=== PATIENT | female | born 1965 | race Caucasian/White ===

== ENCOUNTER 2021-07-06 09:16 | Day surgery (SDC) | payer OTHER ==
[~2021-07-06 09:16] MED LIST: Lactated Ringers 1,000 ML IV SCH; Lidocaine 1%/Sod Bicarbonate in NS 8.4% 1 ML Syringe IDERM PRN; Sodium Chloride 0.9% 10 ML Syringe FLUSH PRN
[2021-07-06] MEDS ORDERED: Propofol 200 MG/20 ML SDV ONE ×2 (09:17→11:20)
[2021-07-06] MEDS ORDERED: fentaNYL 100 MCG/2 ML SDV ONE (09:17)
[2021-07-06] MEDS ORDERED: Lactated Ringers 1,000 ML ONE (09:17)
[2021-07-06] MEDS ORDERED: Midazolam 1 MG/ML 2 ML SDV ONE (09:17)
[2021-07-06] MEDS ORDERED: ceFAZolin 1 GM Vial ONE (09:20)
--- NOTE | 2021-07-06 09:48 | PCM.PREANE ---
Preanesthetic Assessment - Anesthesia/Transfusion/Family Hx Anesthesia History: Prior Anesthesia Without Reaction Family History of Anesthesia Reaction: No Transfusion History: No Prior Transfusion(s) - Review of Systems General: No Symptoms Pulmonary: No Symptoms Cardiovascular: Other (htn) Gastrointestinal: Other (denies GERd with diet change) Neurological: Other Other: Reports: Thyroid Problems (on replacement) - Physical Assessment NPO Status Date: 07/05/21 NPO Status Time: 19:00 Height: 1.7 m Weight: 85.4 kg ASA Class: 2 Mental Status: Alert & Oriented x3 Airway Class: Mallampati = 2 Dentition: Reports: Normal Dentition Thyro-Mental Finger Breadths: 3 Mouth Opening Finger Breadths: 3 ROM/Head Extension: Full Lungs: Clear to Auscultation, Normal Respiratory Effort Cardiovascular: Regular Rate, Regular Rhythm - Allergies Allergies/Adverse Reactions: Allergies Allergy/AdvReac Type Severity Reaction Status Date / Time No Known Allergies Allergy Verified 07/06/21 09:19 - Blood Blood Available: No Product(s) Available: None - Anesthesia Plan Pre-Op Medication Ordered: None - Acknowledgements Anesthesia Type Planned: Spinal Pt an Appropriate Candidate for the Planned Anesthesia: Yes Alternatives and Risks of Anesthesia Discussed w Pt/Guardian: Yes Pt/Guardian Understands and Agrees with Anesthesia Plan: Yes PreAnesthesia Questionnaire - HOME MEDS Home Medications: Home Meds Aspirin [Aspirin EC] 325 mg PO BID #84 tab 07/06/21 [Rx] Cyclobenzaprine [Flexeril] 10 mg PO BID PRN #20 tab 07/06/21 [Rx] oxyCODONE 5 - 10 mg PO Q4H PRN #40 tab 07/06/21 [Rx] - CURRENT (IN HOUSE) MEDS Current Meds: Current Medications Morphine Sulfate 8 mg/Epinephrine HCl 0.3 mg/Cefuroxime Sodium 750 mg/Ketorolac Tromethamine 30 mg/Sodium Chloride 7.9 ml 0 mg .XX ASDIRECTED PRN PRN Reason: Pain Stop: 07/06/21 18:00 Lactated Ringer's (Ringers, Lactated) 1,000 mls @ 125 mls/hr IV ASDIRECTED BRUCE Stop: 07/06/21 23:00 Lidocaine/Sodium Bicarbonate (Lidocaine 1%/Sod Bicarbonate In Ns 8.4% 1 Ml Syringe) 0.25 ml IDERM ONETIME PRN PRN Reason: Prior to IV Start Stop: 07/06/21 18:00 Sodium Chloride (Sodium Chloride 0.9% 10 Ml Syringe) 10 ml FLUSH ASDIRECTED PRN PRN Reason: Keep Vein Open Stop: 07/06/21 18:00 Discontinued Medications Bupivacaine HCl (Bupivacaine 0.25% 10 Ml Sdv) Confirm Administered Dose 10 ml .ROUTE .STK-MED ONE Stop: 07/06/21 09:22 Cefazolin Sodium (Cefazolin 1 Gm Vial) Confirm Administered Dose 2 gm .ROUTE .STK-MED ONE Stop: 07/06/21 09:21 Fentanyl (Fentanyl 100 Mcg/2 Ml Sdv) Confirm Administered Dose 100 mcg .ROUTE .STK-MED ONE Stop: 07/06/21 09:18 Lactated Ringer's (Ringers, Lactated) Confirm Administered Dose 1,000 mls @ as directed .ROUTE .STK-MED ONE Stop: 07/06/21 09:18 Midazolam HCl (Midazolam 1 Mg/Ml 2 Ml Sdv) Confirm Administered Dose 2 mg .ROUTE .STK-MED ONE Stop: 07/06/21 09:18 Propofol (Propofol 200 Mg/20 Ml Sdv) Confirm Administered Dose 600 mg .ROUTE .STK-MED ONE Stop: 07/06/21 09:18 Tranexamic Acid (Tranexamic Acid 1,000 Mg/10 Ml Amp) Confirm Administered Dose 1,000 mg .ROUTE .STK-MED ONE Stop: 07/06/21 09:22 Triamcinolone Acetonide (Triamcinolone Acetonide 40 Mg/Ml 1 Ml Sdv) Confirm Administered Dose 80 mg .ROUTE .STK-MED ONE Stop: 07/06/21 09:21 Vancomycin HCl (Vancomycin 1 Gm Sdv) Confirm Administered Dose 1 gm .ROUTE .STK- MED ONE Stop: 07/06/21 09:22
[2021-07-06] MEDS ORDERED: Ropivacaine 0.5% 5 MG/ML 30 ML SDV ONE ×2 (10:04→11:42)
[2021-07-06] MEDS ORDERED: EPINEPHrine 1 MG/ML SDV ONE ×2 (10:04→11:42)
[2021-07-06] MEDS ORDERED: Ondansetron 4 MG/2 ML SDV ONE (10:23)
[2021-07-06] MEDS ORDERED: Ketorolac 30 MG/ML SDV ONE (10:34)
[2021-07-06] MEDS: Vancomycin 1 GM SDV ONE ×2 (11:15→11:38)
[2021-07-06] MEDS: Triamcinolone Acetonide 40 MG/ML 1 ML SDV ONE ×2 (11:17→11:55)
[2021-07-06] MEDS: Bupivacaine 0.25% 10 ML SDV ONE ×2 (11:17→11:55)
[2021-07-06] MEDS: Morphine 8 MG, EPINEPHrine 0.3 MG, Cefuroxime 750 MG, Ketorolac 30 MG, Sodium Chloride ... PRN ×10 (11:30→13:36)
--- NOTE | 2021-07-06 12:15 | PCM.POSTAN ---
POST ANESTHESIA ASSESSMENT - MENTAL STATUS Mental Status: Alert, Oriented - RESPIRATORY Respiratory Status: Respiratory Rate WNL, Airway Patent, O2 Saturation Stable - CARDIOVASCULAR CV Status: Pulse Rate WNL, Blood Pressure Stable - GASTROINTESTINAL GI Status: No Symptoms - PAIN Pain Score: 5 - POST OP HYDRATION Hydration Status: Adequate & Stable - OBSERVATIONS Free Text/Narrative:: no anesthesia complications noted
[2021-07-06] MEDS: fentaNYL 100 MCG/2 ML SDV IVPUSH PRN ×2 (12:17→12:36)
--- NOTE | 2021-07-06 12:41 | PCM.SN.2 ---
- Free Text/Narrative Note: Right selective femoral nerve block at the adductor canal for post-procedure pain control under US guidance requested by Dr. Kathleen. Time Out: 1213 Start: 1219 End: 1228 Chart reviewed. Consent signed. Questions answered. Appropriate monitors applied. Time out performed. Right mid-shaft femur identified with ultrasound, scanning medially of femur, the femoral artery in the adductor canal visualized, and the femoral nerve located laterally to the artery. The skin was prepped lateral to the ultrasound probe with chlorahexadine times two. The 21ga 4 insulated block needle was inserted under direct ultrasound guidance into the adductor canal. 1224 positive aspiration on initial aspirate, needle removed and relocated needle under ultrasound. 25mL of 0.5% ropivacaine with 1:200,000 epinephrine was injected circumferentially around the nerve with intermittent negative aspiration noted. Patient tolerated the procedure well. Sterile technique noted along with sterile gloves, mask, and sterile probe cover. See picture on progress note and vital signs on nurses notes. Block completed in PACU. Thank you, Pearl Rodriguez, CHECKER LOADER
--- NOTE | 2021-07-06 13:11 | PCM48HPAN ---
Post Anesthesia Note - EVALUATION WITHIN 48HRS OF ANESTHETIC Vital Signs in Normal Range: Yes Patient Participated in Evaluation: Yes Respiratory Function Stable: Yes Airway Patent: Yes Cardiovascular Function Stable: Yes Hydration Status Stable: Yes Pain Control Satisfactory: Yes Nausea and Vomiting Control Satisfactory: Yes Mental Status Recovered: Yes Vital Signs: Last Vital Signs Temp 36.8 C 07/06/21 13:00 Pulse 81 07/06/21 13:00 Resp 13 07/06/21 13:00 BP 130/80 07/06/21 13:00 Pulse Ox 100 07/06/21 13:00
--- NOTE | 2021-07-06 13:54 | CR ---
Right knee: AP and crosstable lateral views of the right knee were obtained. Comparison: Prior right knee radiographic study of 06/26/21. Knee prosthesis is noted. Patellar prosthesis is also seen. Components are aligned. Underlying bony structures are intact. Soft tissue air is seen. Impression: 1. Satisfactory postop radiographic appearance of recently placed right knee prostheses. Diagnostic code #2
[2021-07-06] MEDS: oxyCODONE 5 MG Tab PO PRN ×2 (13:56→14:36)
--- NOTE | 2021-07-20 12:13 | PCM.OPNOTE ---
- General Post-Op/Procedure Note Date of Surgery/Procedure: 07/06/21 Operative Procedure(s): right total knee arthroplasty with left knee corticosteroid injecftion Pre Op Diagnosis: bilateral knee osteoarthrosis Post-Op Diagnosis: Same Anesthesia Technique: Local, MAC, Spinal Primary Surgeon: Neto Kathleen Anesthesia Provider: Pearl Rodriguez Model Photographers': Tracey Sebastian Model Photographers': Tri Zapata EBL in mLs: 150 Complications: None Condition: Good Free Text/Narrative:: 01/07 10mm 32x10
--- NOTE | 2021-07-21 11:56 | OR ---
DATE OF OPERATION: 07/06/2021 SURGEON: Neto Kathleen MD OPERATION PERFORMED: Right total knee arthroplasty with left knee corticosteroid injection. PREOPERATIVE DIAGNOSIS: Bilateral knee osteoarthrosis. POSTOPERATIVE DIAGNOSIS: Bilateral knee osteoarthrosis. ANESTHESIA: Local MAC with spinal. ANESTHESIA PROVIDER: Pearl Rodriguez. ASSISTANTS: Tracey Sebastian PA-C and Tri Zapata LPN ESTIMATED BLOOD LOSS: 150 mL. COMPLICATIONS: None. CONDITION: Stable. IMPLANTS: 1. [place] size 3 press-fit CR femur. 2. Doris size 3 press-fit tibial base plate. 3. [place] size 3, 10 mm CS polyethylene insert. 4. [place]is size 32 x 10 mm press-fit asymmetric patella. DESCRIPTION OF PROCEDURE: The patient was identified in the preoperative holding area. Proper site was marked and identified by the surgeon. The patient was taken back to the operating theater where after adequate anesthesia, the patient's right lower extremity had nonsterile tourniquet applied and then sterilely prepped and draped in the usual sterile fashion. OR time-out was performed. The patient received 2 g IV Ancef. The right lower extremity was exsanguinated. Tourniquet was insufflated to 250 mmHg. Standard anterior incision was made. A medial parapatellar arthrotomy was created. Deep fibers of the MCL were raised. Anterior fat pad was resected. Attention was turned to the patella. Patella measured 24, it was resected to a 14 for 32 x 10 mm patella. Drill holes were drilled, found to be adequate. Attention was turned to the femur. Two 4.0 Schanz pins were placed intra-incisionally in the femur for the [place] Ramesh robotic array. Another 2 were placed on the tibia and checkpoints were placed on both the femur and the tibia. Hip center rotation was obtained. Medial and lateral malleoli were marked. Checkpoints were marked. 40 points were then obtained on both the femur and the tibia for the [place] Ramesh robotic plan. The patient's knee was brought to full extension. Varus and valgus stresses were applied as well as 90 degrees of flexion. [place] Ramesh robotic plan was then developed for this patient for 19 mm gap. Straight saw blade was then brought in. The tibial cut, anterior femoral cut, anterior chamfer cut, and posterior femoral cut were completed. Saw blade was then switched and the distal femoral as well as posterior chamfer cuts were completed. All bony fragments were removed. Medial and lateral meniscus were resected as well as any posterior osteophytes. A size 3 trial base plate was placed as well as size 3 trial femur. 9 mm polyethylene trial insert was placed. The patient had a slight amount of gapping, so a 10 mm was placed. The patient had full extension and flexion with no signs of instability. The femoral drill holes were drilled. The tibia was stamped and drilled in proper rotation. A size 3 tibia was then impacted into place. Size 3 femur was impacted into place and a 10 mm CS polyethylene insert was impacted into place. The patient's knee was brought into full extension and a 32 x 10 mm press-fit patella was press-fit into place. Tourniquet was deflated. Bleeders were cauterized. 1 L pulse lavage irrigation with Ancef was irrigated through the knee along with 400 mL Irrisept irrigation. Periarticular injection was completed. Topical tranexamic acid and vancomycin powder were applied. A #2 barbed suture was used for closure of the medial parapatellar arthrotomy. 2-0 Vicryl and Stratafix were used for subcutaneous closure, and Prineo was used for skin closure. The patient had a sterile soft dressing applied. After this was completed, under sterile technique, 2 mL of 40 mg Kenalog and 4 mL of 0.25% Marcaine were injected to left knee. The patient tolerated all procedures well. ROSE /[id number]
== END 2021-07-06 16:20 | disposition home or self-care (01) ==
LOC: JD.SDS 09:16
PROVIDERS: ATTEND Orthopaedic Surgery
DX: M17.0 Bilateral primary osteoarthritis of knee (principal); I10 Essential (primary) hypertension; Z98.890 Other specified postprocedural states
CPT/HCPCS: 20610; 27447; 73560; 97110; 97116; 97161; A9270; C1713; C1776; J0171; J0690; J0697; J1885; J2250; J2270; J2370; J2405; J2704; J2795; J3010; J3301; J3370; J3490; J7120; 01402; 64450; 76942

== ENCOUNTER 2021-10-19 10:27 | Day surgery (SDC) | payer OTHER ==
[~2021-10-19 10:27] MED LIST changes: +Acetaminophen 325 MG Tab PO SCH; +Morphine 8 MG, EPINEPHrine 0.3 MG, Cefuroxime 750 MG, Ketorolac 30 MG, Sodium Chloride ... PRN; +Pregabalin 25 MG Cap PO SCH; +oxyCODONE ER 10 MG TAB.ER PO SCH
[2021-10-19] MEDS ORDERED: Vancomycin 1 GM SDV ONE (11:09)
--- NOTE | 2021-10-19 11:37 | PCM.PREANE ---
Preanesthetic Assessment - Procedure Proposed Procedure: Left Total Knee Arthroplasty - Anesthesia/Transfusion/Family Hx Anesthesia History: Prior Anesthesia Without Reaction Family History of Anesthesia Reaction: No Transfusion History: No Prior Transfusion(s) Intubation History: Unknown - Review of Systems General: No Symptoms Pulmonary: No Symptoms (Covid +: February 2021/ recovered back to baseline) Cardiovascular: No Symptoms (HTN, elevated cholesterol), Lightheadedness (occasionally with positional changes) Gastrointestinal: No Symptoms (GERD: occasionally) Neurological: No Symptoms (history of vertigo: few years ago.) Other: Reports: None, Thyroid Problems (Hypothyroid/history of thyroidectomy) - Physical Assessment NPO Status Date: 10/18/21 NPO Status Time: 23:00 Vital Signs: HR: 74 Sat: 100% Temp: 98.1 B/P: 135/79 Resp: 18 Height: 1.7 m Weight: 83.461 kg ASA Class: 2 Mental Status: Alert & Oriented x3 Airway Class: Mallampati = 2 Dentition: Reports: Normal Dentition, [place] Thyro-Mental Finger Breadths: 3 Mouth Opening Finger Breadths: 3 ROM/Head Extension: Full Lungs: Clear to Auscultation, Normal Respiratory Effort Cardiovascular: Regular Rate, Regular Rhythm, No Murmurs - Lab Values: All labs reviewed and noted and within acceptable ranges to proceed with scheduled procedure. - Imaging/EKG Impressions: EKG: SR rate=60 CXR: negative - Allergies Allergies/Adverse Reactions: Allergies Allergy/AdvReac Type Severity Reaction Status Date / Time No Known Allergies Allergy Verified 07/06/21 09:19 - Anesthesia Plan Pre-Op Medication Ordered: Other (Preoperativ oral pain meds (lyrica, oxycontin, tylenol) @ 1040) - Acknowledgements Anesthesia Type Planned: Spinal (Left Adductor canal block under us guidance for post operative pain control requested by Dr. Kathleen.) Pt an Appropriate Candidate for the Planned Anesthesia: Yes Alternatives and Risks of Anesthesia Discussed w Pt/Guardian: Yes Pt/Guardian Understands and Agrees with Anesthesia Plan: Yes PreAnesthesia Questionnaire - HOME MEDS Home Medications: Home Meds Aspirin [Aspirin EC] 325 mg PO BID #84 tab 10/19/21 [Rx] Cyclobenzaprine [Flexeril] 10 mg PO BID PRN #20 tab 10/19/21 [Rx] oxyCODONE 5 - 10 mg PO Q4H PRN #40 tab 10/19/21 [Rx] - CURRENT (IN HOUSE) MEDS Current Meds: Current Medications Acetaminophen (Acetaminophen 325 Mg Tab) 975 mg PO ONETIME BRUCE Stop: 10/19/21 12:00 Last Admin: 10/19/21 10:38 Dose: 975 mg Documented by: Morphine Sulfate 8 mg/Epinephrine HCl 0.3 mg/Cefuroxime Sodium 750 mg/Ketorolac Tromethamine 30 mg/Sodium Chloride 7.9 ml 0 mg .XX ASDIRECTED PRN PRN Reason: Pain Stop: 10/19/21 16:00 Lactated Ringer's (Ringers, Lactated) 1,000 mls @ 125 mls/hr IV ASDIRECTED BRUCE Stop: 10/19/21 23:00 Lidocaine/Sodium Bicarbonate (Lidocaine 1%/Sod Bicarbonate In Ns 8.4% 1 Ml Syringe) 0.25 ml IDERM ONETIME PRN PRN Reason: Prior to IV Start Stop: 10/19/21 23:00 Oxycodone HCl (Oxycodone Er 10 Mg Tab.Er) 10 mg PO ONETIME BRUCE Stop: 10/19/21 12:00 Last Admin: 10/19/21 10:37 Dose: 10 mg Documented by: Pregabalin (Pregabalin 25 Mg Cap) 50 mg PO ONETIME BRUCE Stop: 10/19/21 12:00 Last Admin: 10/19/21 10:38 Dose: 50 mg Documented by: Sodium Chloride (Sodium Chloride 0.9% 10 Ml Syringe) 10 ml FLUSH ASDIRECTED PRN PRN Reason: Keep Vein Open Stop: 10/19/21 23:00 Discontinued Medications Tranexamic Acid (Tranexamic Acid 1,000 Mg/10 Ml Amp) Confirm Administered Dose 1,000 mg .ROUTE .STK-MED ONE Stop: 10/19/21 11:10 Vancomycin HCl (Vancomycin 1 Gm Sdv) Confirm Administered Dose 1 gm .ROUTE .STK- MED ONE Stop: 10/19/21 11:10
[2021-10-19] MEDS ORDERED: Lidocaine 1% 4 ML ONE (11:46)
[2021-10-19] MEDS ORDERED: fentaNYL 100 MCG/2 ML SDV ONE (11:46)
[2021-10-19] MEDS ORDERED: Propofol 200 MG/20 ML SDV ONE ×3 (11:46→13:08)
[2021-10-19] MEDS ORDERED: Midazolam 1 MG/ML 2 ML SDV ONE (11:46)
[2021-10-19] MEDS ORDERED: Ondansetron 4 MG/2 ML SDV ONE (11:46)
[2021-10-19] MEDS ORDERED: EPINEPHrine 1 MG/ML SDV ONE (11:55)
[2021-10-19] MEDS ORDERED: Ropivacaine 0.5% 5 MG/ML 30 ML SDV ONE (11:56)
[2021-10-19] MEDS ORDERED: ceFAZolin 1 GM Vial ONE (12:10)
[2021-10-19] MEDS ORDERED: Lactated Ringers 1,000 ML ONE (12:41)
[2021-10-19] MEDS ORDERED: ePHEDrine 50 MG/ML SDV ONE (13:15)
--- NOTE | 2021-10-19 13:42 | PCM.POSTAN ---
POST ANESTHESIA ASSESSMENT - MENTAL STATUS Mental Status: Alert, Oriented - VITAL SIGNS Vital Signs: Last Vital Signs Temp 36.7 C 10/19/21 10:08 Pulse 74 10/19/21 10:08 Resp 18 10/19/21 10:08 BP 135/79 10/19/21 10:08 Pulse Ox 100 10/19/21 10:08 - RESPIRATORY Respiratory Status: Respiratory Rate WNL, Airway Patent, O2 Saturation Stable - CARDIOVASCULAR CV Status: Pulse Rate WNL, Blood Pressure Stable - GASTROINTESTINAL GI Status: No Symptoms - PAIN Pain Score: 0 - POST OP HYDRATION Hydration Status: Adequate & Stable - OBSERVATIONS Free Text/Narrative:: no anesthesia complications noted
--- NOTE | 2021-10-19 13:58 | PCM.SN.2 ---
- Free Text/Narrative Note: Left selective femoral nerve block at the adductor canal for post-procedure pain control under US guidance requested by Dr. Kathleen. Time Out: 1342 Start: 1342 End: 1350 Chart reviewed. Consent signed. Questions answered. Appropriate monitors applied. Time out performed. Left mid-shaft femur identified with ultrasound, scanning medially of femur, the femoral artery in the adductor canal visualized, and the femoral nerve located laterally to the artery. The skin was prepped lateral to the ultrasound probe with chlorahexadine times two. The 21ga 4 insulated block needle was inserted under direct ultrasound guidance into the adductor canal. 25mL of 0.5% ropivacaine with 1:200,000 epinephrine was injected circumferentially around the nerve with intermittent negative aspiration noted. Patient tolerated the procedure well. Sterile technique noted along with sterile gloves, mask, and sterile probe cover. See picture on progress note and vital signs on nurses notes. Block completed in PACU. Francois Gomez CRNA
[2021-10-19] MEDS ORDERED: Cyclobenzaprine 10 MG Tab PO PRN (14:12)
[2021-10-19] MEDS ORDERED: oxyCODONE ER 10 MG TAB.ER PO PRN (14:13)
--- NOTE | 2021-10-19 14:27 | CR ---
Left knee: AP and lateral views of the left knee were obtained. Comparison: Prior left knee CT study of 10/07/21. Knee prosthesis is seen. Patellar prosthesis also noted. Components are aligned. Underlying bony structures show nothing acute. Soft tissue air is seen. Impression: 1. Satisfactory postoperative radiographic exam of recently placed left knee prostheses. Diagnostic code #2
[2021-10-19] MEDS ORDERED: Ondansetron 4 MG/2 ML SDV IVPUSH PRN (15:43)
[2021-10-19] MEDS ORDERED: diphenhydrAMINE 50 MG/ML SDV IVPUSH PRN (15:43)
--- NOTE | 2021-10-19 15:43 | PCM48HPAN ---
Post Anesthesia Note - EVALUATION WITHIN 48HRS OF ANESTHETIC Vital Signs in Normal Range: Yes Patient Participated in Evaluation: Yes Respiratory Function Stable: Yes Airway Patent: Yes Cardiovascular Function Stable: Yes Hydration Status Stable: Yes Pain Control Satisfactory: Yes Nausea and Vomiting Control Satisfactory: Yes Mental Status Recovered: Yes Vital Signs: Last Vital Signs Temp 36.7 C 10/19/21 14:30 Pulse 91 10/19/21 15:00 Resp 16 10/19/21 15:00 BP 110/69 10/19/21 15:00 Pulse Ox 100 10/19/21 15:00
--- NOTE | 2021-10-25 18:39 | PCM.OPNOTE ---
- General Post-Op/Procedure Note Date of Surgery/Procedure: 10/19/21 Operative Procedure(s): left total knee arthroplsaty with nirmal hung robotics Pre Op Diagnosis: left knee osteoarthrosis Post-Op Diagnosis: Same Anesthesia Technique: Local, MAC, Spinal Primary Surgeon: Neto Kathleen Anesthesia Provider: Francois Gomez Sales And Training Specialist: Tracey Sebastian Sales And Training Specialist: Tri Zapata EBL in mLs: 50 Complications: None Condition: Good Free Text/Narrative:: 01/07 10mm 29x9
--- NOTE | 2021-11-08 18:09 | OR ---
DATE OF OPERATION: 10/19/2021 SURGEON: Neto Kathleen MD OPERATION PERFORMED: Left total knee arthroplasty with [place] Ramesh robotics. PREOPERATIVE DIAGNOSIS: Left knee osteoarthrosis. POSTOPERATIVE DIAGNOSIS: Left knee osteoarthrosis. ANESTHESIA: Local MAC with spinal. ANESTHESIA PROVIDER: Ashok Hernandez. ASSISTANTS: Tracey Sebastian PA-C and Tri Zapata LPN. ESTIMATED BLOOD LOSS: 50 mL. COMPLICATIONS: None. CONDITION: Stable. IMPLANT: 1. [place] size 3 press-fit CR femur. 2. Doris size 3 press-fit tibial baseplate. 3. [place] size 3, 10 mm CS polyethylene insert. 4. [place] size 29 x 9 mm press-fit asymmetric patella. DESCRIPTION OF PROCEDURE: The patient was identified in the preop holding area. Proper site was marked and identified by the surgeon. The patient was taken back to the operating theater, where after adequate anesthesia, the patient's left lower extremity had a nonsterile tourniquet applied and then it was sterilely prepped and draped in the usual sterile fashion. OR time-out was performed. The patient received 2 g IV Ancef. Leg jack was then applied to the left lower extremity. At this time, the left lower extremity was exsanguinated. Tourniquet was insufflated to 250 mmHg. Standard anterior incision was made. Medial parapatellar arthrotomy was created. Deep fibers of the MCL were raised and anterior fat pad was resected. Attention was turned to the patella. Patella measured 24, it was resected to a 14 for a 29 x 9 mm patella. Drill holes were then drilled. Attention was then turned to the femur. Two 4.0 Schanz pins were placed intra- incisionally on the femur for the [place] Ramesh robotic array and then 2 more were placed on the tibia 3 fingerbreadths below the tibial tubercle. The [place] Ramesh robotic arrays were placed on both the femur and the tibia at this time as well as checkpoints on the femur and tibia. Hip center rotation was then obtained. The medial and lateral malleoli were marked as well as the checkpoints were marked for the [place] Ramesh robotic plan. The patient's knee was brought to full extension, varus and valgus stresses were applied, and then into 90 degrees of flexion. [place] Ramesh robotic plan for this patient was then undertaken to match the flexion and extension gaps. A straight saw blade was then brought in. Tibial cut was completed as well as an anterior femoral cut, anterior chamfer cut, and posterior femoral cut. Saw blade was then switched out and the distal femoral cut as well as the posterior chamfer cut was completed. All bony fragments were removed. At this time, medial and lateral menisci were resected as well as any posterior osteophytes. Attention was turned to the tibia. The size 3 trial baseplate was placed on the tibia and a size 3 trial femur was placed on the femur. A 3, 10 mm trial poly was placed. The patient's knee was brought to full extension and flexion. Varus and valgus stresses were applied, was found to be stable with no instability. No signs of liftoff or loosening on the tibial baseplate. At this time, femoral drill holes were drilled, and the tibia was stamped and drilled in proper rotation. All trial implants were then removed. The size 3 tibial baseplate was impacted into place, size 3 femoral component was impacted into place, and then a 3, 10 mm CS polyethylene insert was impacted into place. A 29 x 9 press-fit patella was then press-fit into place. The tourniquet was deflated. Bleeders were cauterized. 1 L pulse lavage irrigation with Ancef was irrigated through the knee along with 400 mL Irrisept irrigation. Periarticular injection was completed. Topical tranexamic acid and vancomycin powder were applied. All checkpoints and pins were removed. At this point, a #2 barbed suture was used for closure of the medial parapatellar arthrotomy in flexion. 2-0 Vicryl and Stratafix were used for subcutaneous closure. Prineo was used for cutaneous closure. 3-0 nylons were used for closure of the pin holes on the tibia. The patient had a sterile soft dressing applied. The patient had an ELIZABETH wrap applied and was sent to PACU in stable condition. The patient tolerated the procedure well. MMODAL /[id number]
== END 2021-10-19 16:36 | disposition home or self-care (01) ==
LOC: JD.SDS 10:27
PROVIDERS: ATTEND Orthopaedic Surgery
DX: M17.12 Unilateral primary osteoarthritis, left knee (principal); I10 Essential (primary) hypertension; E03.9 Hypothyroidism, unspecified; E55.9 Vitamin D deficiency, unspecified; E66.9 Obesity, unspecified; G89.29 Other chronic pain; E78.2 Mixed hyperlipidemia; Z98.890 Other specified postprocedural states
CPT/HCPCS: 27447; 73560; 97116; 97161; A9270; C1713; C1776; J0171; J0690; J0697; J1200; J1885; J2250; J2270; J2370; J2405; J2704; J2795; J3010; J3370; J7120; 01402; 64450; 76942